=== PATIENT | female | born 1935 | race Caucasian/White ===

== ENCOUNTER 2017-08-19 10:21 | Emergency (ER) | payer OTHER ==
[~2017-08-19] VITALS: Ht 175.3 cm; Wt 59.9 kg
--- NOTE | ~2017-08-19 | EKG ---
[place] [address] [facility] [place] [address] ELECTROCARDIOGRAM REPORT Name: OK WALTER Room #: [facility].#: [id number] Admission: Attend Phys: Discharge: Date of : 34 Report #: [id number] THIS REPORT FOR: //name// [facility] ED Test Date: 2017-08-19 Test Time: 10:30:54 Pat Name: OK WALTER Department: Room: Gender: F Welt Wheeler: [id number] : 1935 Requested By: Isha Garcia Order Number: [id number] MD: Julio Tanner Measurements Intervals [place] Rate: 75 P: 61 LA: 250 QRS: -36 QRSD: 88 T: 67 QT: 409 QTc: 457 Interpretive Statements Sinus rhythm Prolonged LA interval Probable left atrial enlargement Left axis deviation Anteroseptal infarct, age indeterminate Electronically Signed On 08-19-2017 11:12:01 CDT by Julio Tanner [email or web address] <ELECTRONICALLY SIGNED> By: Julio Tanner MD 08/19/17 1112 1030 1030 MD ROCÍO Aguilera
[~2017-08-19 10:21] MED LIST: APAP500; APAP500 PO; ASPIR 8181 MG; ATIVAN0.5 MG PO; BONIVA3 MG/3 ML; CALCIUM 500 +1 EAC5 PO; CENTRUM SILVER1 EAC4 PO; CHLORTHALIDONE25 MG; CHLORTHALIDONE25 MG PO; DOXYCYCLINE 10100 MG PO; HYDROCODON-ACE1 EAC7 PO; IBUPROFEN 200200 M1 PO; IBUPROFEN200 M2 PO; IRON325 PO; LEVOTHYROXIN0.025 MG PO; LUMIGAN2.5 M1 OPHTHALMIC; MULT-VIT-FLUOR0.5 M1; NORCO 5-325 TA1 EACH PO; PROLIA60 MG/1 ML INJECTION; PROLIA60 MG/1 ML SQ; TAPAZOLE5 MG PO; TRAMADOL 50 MG50 MG PO; VALIUM2 MG PO; VITAMIN D2000 UNIT PO; VITAMIN D400 UNI1 PO; ZOFRAN4 MG PO; [UNRECOGNIZED DRUG - REMARK]
[2017-08-19 11:23] LABS: ABSOLUTE NEUTROPHILS 3.5 thou/uL (1.4-8.2); BASOPHILS 1.2 % (0.0-2.0); EOSINOPHILS 1.4 % (0.0-3.0); HEMATOCRIT 36.9 % (37.0-47.0); HEMOGLOBIN 12.5 gm/dL (12.0-15.0); LYMPHOCYTES 30.6 % (24.0-44.0); MCH 30.5 pg (26.0-34.0); MCHC 33.9 g/dL (28.0-37.0); MONOCYTES 8.6 % (1.0-8.0); PLATELET COUNT 205 thou/uL (150-400); POLYS 58.2 % (36.0-66.0); RDW 14.7 % (10.5-14.5); WBC 5.9 thou/uL (4.0-11.0)
[2017-08-19 11:27] LABS: MANUAL DIFF NO
[2017-08-19 11:29] LABS: ANION GAP 8 mmol/L (7-16); BUN 18 mg/dL (7-18); CALCIUM 8.9 mg/dL (8.5-10.1); CHLORIDE 101 mmol/L (98-107); CO2 28 mmol/L (21-32); CREATININE 0.9 mg/dL (0.6-1.0); GLUCOSE 95 mg/dL (74-106); POTASSIUM 4.3 mmol/L (3.5-5.1); SODIUM 137 mmol/L (136-145)
[2017-08-19 11:38] LABS: ALBUMIN 3.6 g/dL (3.4-5.0); ALKALINE PHOSPHATASE 45 U/L (46-116); SGOT 21 U/L (15-37); SGPT 17 U/L (30-65); TOTAL BILIRUBIN 0.4 mg/dL (<0.1-1.0); TROPONIN-I < 0.04 ng/mL (<0.04-0.07)
[2017-08-19] MEDS ORDERED: TYLENOL325 MG PO (12:01)
[2017-08-19] MEDS ORDERED: NORVASC5 MG PO (12:02)
== END 2017-08-19 12:52 | disposition home or self-care (01) ==
LOC: ER 10:21
PROVIDERS: Physician Assistant
DX: R07.9 Chest pain, unspecified (principal); I10 Essential (primary) hypertension; E05.90 Thyrotoxicosis, unspecified without thyrotoxic crisis or storm; Z90.49 Acquired absence of other specified parts of digestive tract; Z88.0 Allergy status to penicillin

== ENCOUNTER 2017-12-16 10:29 | Emergency (ER) | payer OTHER ==
[~2017-12-16] VITALS: Ht 175.3 cm; Wt 59.0 kg
[~2017-12-16 10:29] MED LIST changes: +NORVASC5 MG PO; +TYLENOL325 MG PO
[2017-12-16 10:55] LABS: URINE BILIRUBIN NEGATIVE (Negative); URINE BLOOD 2+ (Negative); URINE CLARITY CLEAR; URINE COLOR YELLOW; URINE GLUCOSE-RANDOM* NEGATIVE (Negative); URINE KETONES NEGATIVE (Negative); URINE LEUKOCYTES 3+ (Negative); URINE NITRITE POSITIVE (Negative); URINE PROTEIN (DIPSTICK) TRACE (Negative); URINE UROBILINOGEN 0.2 E.U./dl (0.2-1.0)
[2017-12-16 11:04] LABS: BACTERIA >30 Many /HPF (None Seen); CASTS None Seen /LPF (None Seen); CRYSTALS None Seen /LPF (None Seen); SQUAMOUS 0-3 Few /LPF (0-3); URINE WBC >25 Many /HPF (0-5); WBC CLUMPS Few (None Seen)
[2017-12-16 11:13] LABS: ABSOLUTE NEUTROPHILS 5.1 thou/uL (1.4-8.2); BASOPHILS 1.1 % (0.0-2.0); EOSINOPHILS 0.7 % (0.0-3.0); HEMATOCRIT 36.5 % (37.0-47.0); HEMOGLOBIN 12.4 gm/dL (12.0-15.0); LYMPHOCYTES 21.8 % (24.0-44.0); MCH 30.4 pg (26.0-34.0); MCHC 33.9 g/dL (28.0-37.0); MCV 89.7 fL (80.0-100.0); PLATELET COUNT 209 thou/uL (150-400); POLYS 68.4 % (36.0-66.0); RBC 4.07 mil/uL (4.20-5.00); RDW 13.8 % (10.5-14.5); WBC 7.4 thou/uL (4.0-11.0)
[2017-12-16 11:21] LABS: CALCIUM 8.9 mg/dL (8.5-10.1); CREATININE 0.9 mg/dL (0.6-1.0)
[2017-12-16 11:27] LABS: ALBUMIN 3.8 g/dL (3.4-5.0); TOTAL BILIRUBIN 0.6 mg/dL (<0.1-1.0); TOTAL PROTEIN 7.1 g/dL (6.4-8.2)
[2017-12-16] MEDS ORDERED: MACROBID 100 M100 M1 PO (12:31)
[2017-12-16 12:38] VITALS: BP 115/65
[2018-08-04] MEDS ORDERED: SYNTHROID88 MCG PO (14:18)
[2018-08-04] MEDS ORDERED: CALCIUM 600 +1 EAC2 PO (14:19)
[2018-08-04] MEDS ORDERED: NORVASC2.5 MG PO (14:19)
[2018-08-04] MEDS ORDERED: VITAMIN D32000 UNI1 PO (14:19)
[2018-08-04] MEDS ORDERED: ELIQUIS5 MG PO (14:20)
[2018-08-04] MEDS ORDERED: TYLENOL EXTRA500 MG PO (14:21)
== END 2017-12-16 12:39 | disposition home or self-care (01) ==
LOC: ER 10:29
PROVIDERS: Physician Assistant
DX: N39.0 Urinary tract infection, site not specified (principal); M79.604 Pain in right leg; I10 Essential (primary) hypertension; E05.90 Thyrotoxicosis, unspecified without thyrotoxic crisis or storm; Z90.49 Acquired absence of other specified parts of digestive tract; Z86.2 Personal history of diseases of the blood and blood-forming organs and certain disorders involving the immune mechanism; Z88.0 Allergy status to penicillin

== ENCOUNTER 2017-12-26 12:19 | Inpatient (IN) | payer OTHER ==
[~2017-12-26] VITALS: Ht 175.3 cm; Wt 61.9 kg
--- NOTE | ~2017-12-26 | H ---
[facility] [place] [address] HISTORY AND PHYSICAL Name: OK WALTER Room #: 203-P ADM IN M.R.#: [id number] Admission: 12/26/17 Attend Phys: Tawana New MD Discharge: Date of : 34 Report #: [id number] THIS REPORT FOR: //name// CC: Tawana New [facility] unknown DATE OF SERVICE: 12/26/2017 REASON FOR PRESENTATION: Nonspecific nausea, headache, chest pain, shoulders pain. HISTORY OF PRESENT ILLNESS: This is an 82-year-old who presented with numerous complaints. She is known to have hypertension, status post thyroidectomy for hyperparathyroidism. She presented after an episode of vomiting last night. This was a one-time event. This morning, she woke up with bilateral shoulders pain. Those were nonspecific and nonreproducible. No injury. No previous similar episodes. Because of her vague symptoms, she decided to come to the Emergency Room. She reported to nonreproducible right-sided chest pain. She visited the Emergency Room about a week ago for nonspecific symptoms and was diagnosed to have urinary tract infection. At that time, she had numerous other complaints. She also has reported right lower extremity pain. A duplex ultrasound was done of her lower extremity back on 12/16/2017 and this was negative for a DVT. CT of the chest and abdomen and pelvis was done today and this was nonrevealing. She continued to have issues in the Emergency Room and was admitted for further evaluation and management. EKG revealed very minor anterolateral changes. PAST MEDICAL HISTORY: 1. Osteoporosis. 2. Post-cataract. 3. Tonsillectomy. 4. Appendectomy. 5. Hypothyroidism and remote history of hyperthyroidism. 6. Fracture, left hip. 7. Fracture, left ankle. MEDICATIONS: 1. Levothyroxine. 2. Prolia. 3. Vitamin D. 4. Amlodipine. ALLERGIES: PENICILLIN. SOCIAL HISTORY: No drug or alcohol abuse. She used to be a ramsey . [address] [address] HISTORY AND PHYSICAL Name: OK WALTER Room #: [address] [place] [address] IN M.R.#: [id number] Admission: 12/26/17 Attend Phys: Tawana New MD Discharge: Date of : 34 Report #: [id number] FAMILY HISTORY: Significant for heart disease. REVIEW OF SYSTEMS: Basically, she had numerous complaints including the following: GENERAL: Significant for weakness. No fever. HEAD AND NECK: Significant for cough. PULMONARY: Significant for shortness of breath. No hemoptysis. CARDIOVASCULAR: As per the history of present illness. GENITOURINARY: No frequency. GASTROINTESTINAL: Occasional nausea and vomiting. MUSCULOSKELETAL: Shoulders pain, knees pain, back pain. SKIN: No rash or ulcerations. PHYSICAL EXAMINATION: GENERAL: She is alert, oriented, in no apparent distress. VITAL SIGNS: Blood pressure 109/61, temperature 36.5, pulse rate 101. HEAD AND NECK: No jugular venous distention, no bruit, no thyromegaly. Scar from previous thyroidectomy. CHEST: No crackles. CARDIOVASCULAR: Regular with no rub. ABDOMEN: Soft, nontender with no hepatosplenomegaly. LOWER EXTREMITIES: No edema. Occasional varicose veins present. LABORATORY VALUES: Reviewed. Basically within normal other than a potassium of 3.4. AST is mildly elevated at 63. Albumin 3.2. UA is still pending. CT abdomen and pelvis reviewed and negative. ASSESSMENT, IMPRESSION AND PLAN: 1. An 82-year-old with numerous complaints including shoulders pain, chest pain, nausea, headache, vomiting, lower extremity swelling. 2. Hypertension. 3. Remote history of thyroidectomy. 4. Nonspecific chest pain. 5. Hypokalemia. 6. Mildly elevated AST. 7. Admission. 8. Serial troponins. 9. Cardiac echo in the morning. 10. Resume thyroid medications. 11. Resume blood pressure medications. 12. If AST is still elevated in the morning, we will address; however, her CT [address] [address] HISTORY AND PHYSICAL Name: OK WALTER Room #: 203-P [facility] IN M.R.#: [id number] Admission: 12/26/17 Attend Phys: Tawana New MD Discharge: Date of : 34 Report #: [id number] abdomen is completely unremarkable. 13. If echo and troponins are negative, she could be discharged home. <ELECTRONICALLY SIGNED> By: Tawana New MD 12/26/17 1810 1546 1615 Tawana New MD /nt
--- NOTE | ~2017-12-26 | 2DMMODE ---
[facility] [address] [place] [address] 2 D/M-MODE ECHOCARDIOGRAM Name: OK WALTER Room #: 203-P ADM IN M.R.#: [id number] Admission: 12/26/17 Attend Phys: Gomez Diaz, Discharge: Date of : 34 Date of Service: 12/27/17 1119 Report #: [id number] THIS REPORT FOR: //name// APPROVED REPORT Study performed: 12/27/2017 09:40:17 EXAM: Comprehensive 2D, Doppler, and color-flow Echocardiogram Patient Location: Bedside Room #: 203 Status: routine BSA: 1.75 HR: 67 bpm BP: 133/58 mmHg Other Information Study Quality: Poor Indications Chest Pain Hypertension/HDD Aortic Valve AoV Peak Veto.: 1.03 m/s AO Peak Gr.: 4.27 mmHg Mitral Valve E/A Ratio: 1.4 MV Decel. Time: 342.75 ms MV E Max Veto.: 0.88 m/s MV A Veto.: 0.64 m/s MV PHT: 99.40 ms IVRT: 73.82 ms Pulmonary Valve PV Peak Veto.: 0.87 m/s PV Peak Gr.: 3.03 mmHg Left Ventricle The left ventricle is normal size. Regional wall motion is not well visualized but grossly normal. There is normal left ventricular wall thickness. The left ventricular systolic function is normal. The left ventricular ejection fraction is within the normal range. LVEF is 55-60%. This study is not technically sufficient to allow evaluation of the LV diastolic function due to atrial fibrillation. [facility] [address] [place] [address] 2 D/M-MODE ECHOCARDIOGRAM Name: OK WALTER Room #: 203-P ADM IN M.R.#: [id number] Admission: 12/26/17 Attend Phys: Gomez Diaz, Discharge: Date of : 34 Date of Service: 12/27/17 1119 Report #: [id number] Right Ventricle The right ventricle is normal size. The right ventricular systolic function is normal. Atria The left atrium size is normal. The right atrium size is normal. Aortic Valve The aortic valve is normal in structure. No aortic regurgitation is present. There is no aortic valvular stenosis. Mitral Valve The mitral valve is normal in structure. Trace mitral regurgitation. No evidence of mitral valve stenosis. Tricuspid Valve The tricuspid valve is normal in structure. There is no tricuspid valve regurgitation noted. Pulmonic Valve The pulmonary valve is normal in structure. There is no pulmonic valvular regurgitation. Great Vessels The aortic root is normal in size. IVC is not well visualized. Pericardium There is no pericardial effusion. <Conclusion> Very limited study The left ventricular systolic function is normal. Regional wall motion is not well visualized but grossly normal. LVEF 55-60%. Significant structural valve disease probably absent. No significant regurgitant or stenotic lesions Pulmonary artery pressure could not be reliably ascertained No pericardial effusion <ELECTRONICALLY SIGNED> By: Ari Constantino MD, FACC 12/27/17 1119 1119 1119 Ari Constantino MD, FACC /INF
--- NOTE | ~2017-12-26 | EKG ---
[address] [place] [address] ELECTROCARDIOGRAM REPORT Name: OK WALTER Room #: 203-P ADM IN M.R.#: [id number] Admission: 12/26/17 Attend Phys: Gomez Diaz MD Discharge: Date of : 34 Report #: [id number] THIS REPORT FOR: //name// [facility] ED Test Date: 2017-12-26 Test Time: 13:31:31 Pat Name: OK WALTER Department: Room: [facility] Gender: F Drop Clipper: Saundra BURROUGHS : 1935 Requested By: Hung Bustillo Order Number: [id number] MD: Ari Constantino Measurements Intervals [place] Rate: 70 P: 118 IA: 239 QRS: -40 QRSD: 91 T: 83 QT: 403 QTc: 435 Interpretive Statements Sinus rhythm Prolonged IA interval Left axis deviation Anterior infarct, old Nonspecific ST segment abnormality Compared to ECG 08/19/2017 10:30:54 ST segment abnormality is now present, lateral leads Electronically Signed On 12-27-2017 7:38:48 BENCH MANAGER by Ari Constantino [email or web address] <ELECTRONICALLY SIGNED> By: Ari Constantino MD, [facility] 12/27/17 0738 1331 1331 Ari Constantino MD, [facility] /EPI
[~2017-12-26 12:19] MED LIST changes: +MACROBID 100 M100 M1 PO
[2017-12-26 12:38] VITALS: BP 109/61
[2017-12-26 13:54] LABS: HEMATOCRIT 36.1 % (37.0-47.0); HEMOGLOBIN 12.6 gm/dL (12.0-15.0); MCH 30.7 pg (26.0-34.0); MCHC 34.8 g/dL (28.0-37.0); MCV 88.1 fL (80.0-100.0); PLATELET COUNT 162 thou/uL (150-400); RDW 13.6 % (10.5-14.5); WBC 5.3 thou/uL (4.0-11.0)
[2017-12-26 14:00] LABS: ANION GAP 11 mmol/L (7-16); BUN 14 mg/dL (7-18); CALCIUM 8.3 mg/dL (8.5-10.1); CHLORIDE 100 mmol/L (98-107); CO2 24 mmol/L (21-32); CREATININE 0.9 mg/dL (0.6-1.0); GLUCOSE 132 mg/dL (74-106); POTASSIUM 3.4 mmol/L (3.5-5.1); SODIUM 135 mmol/L (136-145)
[2017-12-26 14:09] LABS: ALBUMIN 3.2 g/dL (3.4-5.0); DIRECT BILIRUBIN 0.1 mg/dL (<0.1-0.3); LIPASE 224 U/L (73-393); SGOT 63 U/L (15-37); SGPT 53 U/L (30-65); TOTAL BILIRUBIN 0.4 mg/dL (<0.1-1.0); TOTAL PROTEIN 6.4 g/dL (6.4-8.2); TROPONIN-I < 0.04 ng/mL (<0.06)
[2017-12-26 14:29] LABS: ABSOLUTE NEUTROPHILS 4.3 thou/uL (1.4-8.2)
[2017-12-26 15:50] VITALS: BP 127/50
[2017-12-26 15:52] LABS: URINE BILIRUBIN NEGATIVE (Negative); URINE BLOOD TRACE (Negative); URINE CLARITY CLEAR; URINE COLOR YELLOW; URINE GLUCOSE-RANDOM* NEGATIVE (Negative); URINE KETONES 1+ (Negative); URINE LEUKOCYTES NEGATIVE (Negative); URINE NITRITE NEGATIVE (Negative); URINE PROTEIN (DIPSTICK) NEGATIVE (Negative); URINE SPECIFIC GRAVITY 1.015 (1.005-1.035); URINE UROBILINOGEN 0.2 E.U./dl (0.2-1.0)
[2017-12-26 16:18] VITALS: BP 121/74
[2017-12-26 19:33] VITALS: BP 141/73
[2017-12-26 23:18] VITALS: BP 121/64
[2017-12-27 01:37] LABS: HEMATOCRIT 30.9 % (37.0-47.0); MCH 30.4 pg (26.0-34.0); MCHC 33.6 g/dL (28.0-37.0); MCV 90.4 fL (80.0-100.0); RBC 3.42 mil/uL (4.20-5.00); RDW 14.1 % (10.5-14.5); WBC 2.9 thou/uL (4.0-11.0)
[2017-12-27 01:39] LABS: HEMOGLOBIN 10.4 gm/dL (12.0-15.0)
[2017-12-27 01:56] LABS: ALBUMIN 2.2 g/dL (3.4-5.0); CALCIUM 6.7 mg/dL (8.5-10.1); CREATININE 0.7 mg/dL (0.6-1.0); PHOSPHORUS 3.4 mg/dL (2.5-4.9); TOTAL BILIRUBIN 0.2 mg/dL (<0.1-1.0); TOTAL PROTEIN 4.6 g/dL (6.4-8.2)
[2017-12-27 01:59] LABS: POTASSIUM 2.8 mmol/L (3.5-5.1)
[2017-12-27 03:45] VITALS: BP 132/50
[2017-12-27 07:35] VITALS: BP 133/58
[2017-12-27 11:19] VITALS: BP 133/67
[2017-12-27 12:23] VITALS: BP 133/67
[2017-12-27 12:30] VITALS: BP 133/67
[2018-08-04] MEDS ORDERED: SYNTHROID88 MCG PO (14:18)
[2018-08-04] MEDS ORDERED: CALCIUM 600 +1 EAC2 PO (14:19)
[2018-08-04] MEDS ORDERED: VITAMIN D32000 UNI1 PO (14:19)
[2018-08-04] MEDS ORDERED: NORVASC2.5 MG PO (14:19)
[2018-08-04] MEDS ORDERED: ELIQUIS5 MG PO (14:20)
[2018-08-04] MEDS ORDERED: TYLENOL EXTRA500 MG PO (14:21)
== END 2017-12-27 14:50 | disposition home or self-care (01) | DRG 313 ==
LOC: ER 12:19 → 2N 15:19 → EROBS 15:19 → 2N 17:34 → ENTRNSPT 12-27 14:42 → EDTRNSPTSTS 12-27 14:45 → 2N 12-27 14:50
PROVIDERS: Hospitalist; Nurse Practitioner
PROC: B24BZZ4 Ultrasonography of Heart with Aorta, Transesophageal (ICD-10-PCS; principal; 2017-12-27)
DX: R07.89 Other chest pain (principal); I10 Essential (primary) hypertension; H40.9 Unspecified glaucoma; E87.6 Hypokalemia; E89.0 Postprocedural hypothyroidism; E21.3 Hyperparathyroidism, unspecified; M81.0 Age-related osteoporosis without current pathological fracture; Z87.81 Personal history of (healed) traumatic fracture; Z98.42 Cataract extraction status, left eye; Z98.41 Cataract extraction status, right eye; Z90.49 Acquired absence of other specified parts of digestive tract; Z79.899 Other long term (current) drug therapy; Z88.0 Allergy status to penicillin; Z82.49 Family history of ischemic heart disease and other diseases of the circulatory system
CPT/HCPCS: 10081

== ENCOUNTER → 2018-01-25 | Outpatient (CLI) | payer OTHER ==
[~2018-01-25] MED LIST changes: +CALCIUM 600 +1 EAC2 PO; +ELIQUIS5 MG PO; +HYDROCODONE-AP1 EAC6 PO; +KLOR-CON 1010 MEQ PO; +LASIX 20 MG TAB20 MG PO; +NORVASC2.5 MG PO; +SYNTHROID88 MCG PO; +TYLENOL EXTRA500 MG PO; +VITAMIN C500 M2 PO; +VITAMIN D32000 UNI1 PO
== END ==
LOC: RAD 07:40
DX: C50.411 Malignant neoplasm of upper-outer quadrant of right female breast (principal); Z17.0 Estrogen receptor positive status [ER+]; Z90.12 Acquired absence of left breast and nipple

== ENCOUNTER 2018-03-18 15:33 | Inpatient (IN) | payer OTHER ==
[~2018-03-18] VITALS: Ht 175.3 cm; Wt 65.1 kg
--- NOTE | ~2018-03-18 | 2DMMODE ---
[facility] [address] [facility] [place] [address] 2 D/M-MODE ECHOCARDIOGRAM Name: OK WALTER Room #: 206-P ADM IN M.R.#: [id number] Admission: 03/18/18 Attend Phys: Gomez Diaz, Discharge: Date of : 34 Date of Service: 03/20/18 0727 Report #: [id number] THIS REPORT FOR: //name// APPROVED REPORT Study performed: 03/19/2018 12:59:08 EXAM: Comprehensive 2D, Doppler, and color-flow Echocardiogram Patient Location: Bedside Room #: 206 Status: on-call BSA: 1.78 HR: 55 bpm BP: 94/50 mmHg Rhythm: Atrial Fibrillation Other Information Study Quality: Adequate Risk Factors: Cardiac Risk Factors: HTN Indications Atrial Fibrillation Dyspnea 2D Dimensions LVEF(%): 67.22 (>50%) IVSd: 6.78 (7-11mm) LVOT Diam: 20.00 (18-24mm) LVDd: 33.06 mm PWd: 8.92 (7-11mm) Ascending Ao: 27.66 (22-36mm) LVDs: 21.07 (25-40mm) Aortic Root: 26.04 mm LV Single Plane 4CH: 62.95 % LV Single Plane 2CH: 67.17 % Chance's LVEF: 65.06 % Biplane EF: 63.9 % Volumes Left Atrial Volume (Systole) Single Plane 4CH: 26.71 mL Single Plane 2CH: 33.34 mL LA ESV Index: 18.00 mL/m2 Aortic Valve AoV Peak Veto.: 1.03 m/s AO Peak Gr.: 4.63 mmHg LVOT Max P.83 mmHg [facility] [place] [address] 2 D/M-MODE ECHOCARDIOGRAM Name: OK WALTER ROLAND Room #: [address] [place] [address] IN .R.#: [id number] Admission: 03/18/18 Attend Phys: Gomez Diaz, Discharge: Date of : 34 Date of Service: 03/20/18 0727 Report #: [id number] LVOT Max V: 0.84 m/s JESSICA Vmax: 2.45 cm2 Pulmonary Valve PV Peak Veto.: 0.74 m/s PV Peak Gr.: 2.22 mmHg Tricuspid Valve TR Peak Veto.: 2.39 m/s RAP Estimate: 7.00 mmHg TR Peak Gr.: 22.77 mmHg PA Pressure: 30.00 mmHg Left Ventricle The left ventricle is normal size. There is normal LV segmental wall motion. There is normal left ventricular wall thickness. Left ventricular systolic function is normal. The left ventricular ejection fraction is within the normal range. LVEF is 60-65%. This study is not technically sufficient to allow evaluation of the LV diastolic function due to atrial fibrillation. Right Ventricle The right ventricle is normal size. The right ventricular systolic function is normal. Atria The left atrium size is normal. The right atrium size is normal. Aortic Valve The Aortic valve is sclerotic. No aortic regurgitation is present. There is no aortic valvular stenosis. Mitral Valve There is mitral annular calcification. Trace mitral regurgitation. No evidence of mitral valve stenosis. Tricuspid Valve The tricuspid valve is normal in structure. Trace tricuspid regurgitation. Pulmonary artery pressure is 30 mmHg. Pulmonic Valve The pulmonary valve is normal in structure. Trace pulmonic regurgitation. Great Vessels The aortic root is normal in size. IVC is normal in size and collapses with >50% inspiration [facility] [address] [place] [address] 2 D/M-MODE ECHOCARDIOGRAM Name: OK WALTER GLENNA Room #: 206-P [facility] IN M.R.#: [id number] Admission: 03/18/18 Attend Phys: Gomez Diaz, Discharge: Date of : 34 Date of Service: 03/20/18 0727 Report #: [id number] Pericardium There is no pericardial effusion. <Conclusion> The left ventricle is normal size. Left ventricular systolic function is normal. The right ventricle is normal size. The left atrium size is normal. The right atrium size is normal. The Aortic valve is sclerotic. Trace mitral regurgitation. Trace tricuspid regurgitation. Pulmonary artery pressure is 30 mmHg. There is no pericardial effusion. <ELECTRONICALLY SIGNED> By: Jimenez Mg MD 03/20/18726 6 6 Jimenez Mg MD /INF
--- NOTE | ~2018-03-18 | EKG ---
[address] [address] ELECTROCARDIOGRAM REPORT Name: OK WALTER Room #: 206-P ADM IN M.R.#: [id number] Admission: 03/18/18 Attend Phys: Gomez Diaz MD Discharge: Date of : 34 Report #: [id number] THIS REPORT FOR: //name// [facility] ED Test Date: 2018-03-18 Test Time: 17:03:45 Pat Name: OK WALTER Department: Room: Gender: F High [employer] Professional: MILADY : 1935 Requested By: Dmitri Gamble Order Number: [id number] MD: Jimenez Mg Measurements Intervals [place] Rate: 71 P: AK: QRS: -34 QRSD: 96 T: 58 QT: 451 QTc: 491 Interpretive Statements Atrial fibrillation Left axis deviation Anterior infarct, old Compared to ECG 12/26/2017 13:31:31 Sinus rhythm no longer present First degree AV block no longer present Myocardial infarct finding still present ST (T wave) deviation still present Electronically Signed On 03-18-2018 22:29:45 CDT by Jimenez Mg [email or web address] <ELECTRONICALLY SIGNED> By: Jimenez Mg MD 03/18/18 2229 1703 1703 Jimenez Mg MD /EPI
--- NOTE | ~2018-03-18 | HC ---
[facility] [place] [address] CONSULTATION Name: OK WALTER Room #: 206-P ADM IN M.R.#: [id number] Admission: 03/18/18 Attend Phys: Gomez Diaz MD Discharge: Date of : 34 Report #: [id number] THIS REPORT FOR: //name// CC: Yessi Diaz DATE OF SERVICE: 03/19/2018 INDICATION: Atrial fibrillation. HISTORY OF PRESENT ILLNESS: This is an 82-year-old female with a history of hypothyroidism, hypertension, arthritis, who presents with increased swelling of her legs. The patient reports having chronic dyspnea on exertion, partly related to deconditioning. There is no history of chest pains, lightheadedness, palpitations or congestion. She came into the ER due to increased swelling of her legs. She was found to be in atrial fibrillation with a controlled ventricular rate. Interestingly, she is not on any AV maycol blocking agents. She received IV Lasix with an improvement in her lower extremity edema. PAST MEDICAL HISTORY: Hypertension, hypothyroidism, arthritis. ALLERGIES: PENICILLIN. MEDICATIONS: At home include levothyroxine, amlodipine 5 mg, vitamin. SOCIAL HISTORY: Negative for tobacco use. FAMILY HISTORY: Negative for premature CAD. REVIEW OF SYSTEMS: A full 10-point review of systems performed. Only the pertinent positives and negatives as described in the HPI. PHYSICAL EXAMINATION: VITAL SIGNS: Blood pressure is 120/70, heart rate is 50 beats per minute. GENERAL APPEARANCE: An elderly appearing female in no acute respiratory distress. HEAD AND EYES: Normocephalic. Sclerae are anicteric. ENT: Oral mucosa moist. NECK: Supple. LUNGS: Clear to auscultation. CARDIAC: Irregularly irregular, S1, S2 positive. ABDOMEN: Soft, nontender. EXTREMITIES: No cyanosis, trace lower extremity edema. ECG reveals atrial fibrillation with a controlled ventricular rate, Q-waves in leads V2-V3, nonspecific ST segment abnormality. [facility] [address] [place] [address] CONSULTATION Name: OK WALTER Room #: [address] [place] [address] IN .R.#: [id number] Admission: 03/18/18 Attend Phys: Gomez Diaz MD Discharge: Date of : 34 Report #: [id number] LABORATORY VALUES: Sodium is 139, creatinine is 0.8. TSH is within normal limits. Hemoglobin is 12.7. ASSESSMENT AND PLAN: 1. Atrial fibrillation with a controlled ventricular rate, not requiring any AV node blocking agents. Due to the elevated CHADS score, I discussed with the patient the pros and cons of long-term anticoagulation. She understands and agrees. She appears to be relatively stable with atrial fibrillation. We will continue with a strategy of rate control, even though she is not requiring any medications. Suspect that she may have underlying bradycardia. We will need a repeat echo given the ECG changes. 2. Hypertension, continue with medications. 3. Abnormal ECG, evidence for anteroseptal myocardial infarction. We will need to validate with an ischemic evaluation. 4. Generalized arthritis. <ELECTRONICALLY SIGNED> By: Jimenez Mg MD 03/19/18 2144 1149 1452 Jimenez Mg MD /nt
[~2018-03-18 15:33] MED LIST changes: -CALCIUM 600 +1 EAC2 PO; -ELIQUIS5 MG PO; -HYDROCODONE-AP1 EAC6 PO; -KLOR-CON 1010 MEQ PO; -LASIX 20 MG TAB20 MG PO; -NORVASC2.5 MG PO; -SYNTHROID88 MCG PO; -TYLENOL EXTRA500 MG PO; -VITAMIN C500 M2 PO; -VITAMIN D32000 UNI1 PO
[2018-03-18 16:50] VITALS: BP 129/68
[2018-03-18] MEDS ORDERED: VITAMIN C500 M2 PO (17:08)
[2018-03-18 17:11] LABS: ABSOLUTE NEUTROPHILS 3.3 thou/uL (1.4-8.2); BASOPHILS 1.2 % (0.0-2.0); EOSINOPHILS 7.7 % (0.0-3.0); HEMATOCRIT 37.6 % (37.0-47.0); HEMOGLOBIN 12.7 gm/dL (12.0-15.0); LYMPHOCYTES 30.1 % (24.0-44.0); MCH 30.1 pg (26.0-34.0); MCHC 33.8 g/dL (28.0-37.0); MCV 89.1 fL (80.0-100.0); MONOCYTES 10.3 % (1.0-8.0); PLATELET COUNT 229 thou/uL (150-400); POLYS 50.7 % (36.0-66.0); RBC 4.22 mil/uL (4.20-5.00); RDW 14.9 % (10.5-14.5); WBC 6.6 thou/uL (4.0-11.0)
[2018-03-18 17:22] LABS: ANION GAP 6 mmol/L (7-16); BUN 14 mg/dL (7-18); CALCIUM 9.3 mg/dL (8.5-10.1); CHLORIDE 100 mmol/L (98-107); CO2 29 mmol/L (21-32); CREATININE 0.9 mg/dL (0.6-1.0); GLUCOSE 103 mg/dL (74-106); POTASSIUM 3.9 mmol/L (3.5-5.1); SODIUM 135 mmol/L (136-145)
[2018-03-18 17:29] LABS: SGOT 22 U/L (15-37); SGPT 27 U/L (30-65); TOTAL BILIRUBIN 0.5 mg/dL (<0.1-1.0); TOTAL PROTEIN 7.8 g/dL (6.4-8.2); TROPONIN-I < 0.04 ng/mL (<0.06)
[2018-03-18 18:29] VITALS: BP 129/68
[2018-03-18 20:32] VITALS: BP 148/77
[2018-03-18 21:00] VITALS: BP 122/63
[2018-03-19 00:24] VITALS: BP 110/53
[2018-03-19 03:39] LABS: CALCIUM 9.4 mg/dL (8.5-10.1); CREATININE 0.8 mg/dL (0.6-1.0); POTASSIUM 3.5 mmol/L (3.5-5.1)
[2018-03-19 05:10] VITALS: BP 111/51
[2018-03-19 07:20] VITALS: BP 116/61
[2018-03-19 11:25] VITALS: BP 94/50
[2018-03-19 15:45] VITALS: BP 105/57
[2018-03-19 19:23] VITALS: BP 124/75
[2018-03-20 04:46] VITALS: BP 120/51
[2018-03-20 07:22] VITALS: BP 101/53
[2018-03-20 12:17] VITALS: BP 103/38
[2018-03-20 16:48] VITALS: BP 108/55
[2018-03-20 20:14] VITALS: BP 134/56
[2018-03-21 04:15] VITALS: BP 119/62
[2018-03-21 07:54] VITALS: BP 132/60
[2018-03-21 12:17] VITALS: BP 134/69
[2018-03-21] MEDS ORDERED: ELIQUIS5 MG PO (13:52)
[2018-03-21] MEDS ORDERED: NORVASC5 MG PO (14:00)
[2018-03-21 14:24] VITALS: BP 134/69
== END 2018-03-21 15:00 | disposition home or self-care (01) | DRG 308 ==
LOC: ER 15:33 → EROBS 17:55 → 2N 17:55 → ENTRNSPT 03-21 14:30 → EDTRNSPTSTS 03-21 14:32 → 2N 03-21 15:00
PROVIDERS: Emergency Medicine; Nurse Practitioner Family
DX: I48.91 Unspecified atrial fibrillation (principal); I50.33 Acute on chronic diastolic (congestive) heart failure; I50.9 Heart failure, unspecified; I11.0 Hypertensive heart disease with heart failure; M81.0 Age-related osteoporosis without current pathological fracture; E03.9 Hypothyroidism, unspecified; M19.90 Unspecified osteoarthritis, unspecified site; E05.90 Thyrotoxicosis, unspecified without thyrotoxic crisis or storm; H40.10X0 Unspecified open-angle glaucoma, stage unspecified; I25.2 Old myocardial infarction; Z87.81 Personal history of (healed) traumatic fracture; Z98.42 Cataract extraction status, left eye; Z98.41 Cataract extraction status, right eye; Z90.49 Acquired absence of other specified parts of digestive tract; Z79.899 Other long term (current) drug therapy; Z88.0 Allergy status to penicillin
CPT/HCPCS: 10081

== ENCOUNTER 2018-06-07 08:07 | Emergency (ER) | payer OTHER ==
[~2018-06-07] VITALS: Ht 175.3 cm; Wt 60.3 kg
--- NOTE | ~2018-06-07 | EKG ---
[address] [place] [address] ELECTROCARDIOGRAM REPORT Name: OK WALTER Room #: [facility]#: [id number] Admission: 06/07/18 Attend Phys: Discharge: 06/07/18 Date of : 34 Report #: [id number] THIS REPORT FOR: //name// [facility] ED Test Date: 2018-06-07 Test Time: 09:00:07 Pat Name: OK WALTER Department: Room: Gender: F Saddle Stitcher: [facility] : 1935 Requested By: Kelli Nelson Order Number: [id number] MD: Ari Constantino Measurements Intervals [place] Rate: 73 P: GA: QRS: -47 QRSD: 95 T: 72 QT: 439 QTc: 484 Interpretive Statements Atrial fibrillation Left anterior fascicular block Anteroseptal infarct, age indeterminate Compared to ECG 03/18/2018 17:03:45 No significant change was found Electronically Signed On 06-08-2018 7:39:54 CDT by Ari Constantino [email or web address] <ELECTRONICALLY SIGNED> By: Ari Constantino MD, [facility] 06/08/1839 9 9 Ari Constantino MD, [facility] /EPI
[~2018-06-07 08:07] MED LIST changes: +ELIQUIS5 MG PO; +VITAMIN C500 M2 PO
[2018-06-07 08:58] LABS: URINE BILIRUBIN NEGATIVE (Negative); URINE BLOOD 1+ (Negative); URINE CLARITY CLEAR; URINE COLOR YELLOW; URINE GLUCOSE-RANDOM* NEGATIVE (Negative); URINE KETONES NEGATIVE (Negative); URINE LEUKOCYTES NEGATIVE (Negative); URINE NITRITE NEGATIVE (Negative); URINE PROTEIN (DIPSTICK) NEGATIVE (Negative); URINE UROBILINOGEN 0.2 E.U./dl (0.2-1.0)
[2018-06-07 09:10] LABS: CASTS None Seen /LPF (None Seen); CRYSTALS None Seen /LPF (None Seen); SQUAMOUS 0-3 Few /LPF (0-3); URINE RBC 0-2 Rare /HPF (0-2); URINE WBC 0-5 Rare /HPF (0-5)
[2018-06-07 09:11] LABS: BACTERIA None Seen /HPF (None Seen)
[2018-06-07 09:24] LABS: ABSOLUTE NEUTROPHILS 3.2 thou/uL (1.4-8.2); BASOPHILS 1.1 % (0.0-2.0); EOSINOPHILS 1.2 % (0.0-3.0); HEMATOCRIT 36.5 % (37.0-47.0); HEMOGLOBIN 12.2 gm/dL (12.0-15.0); LYMPHOCYTES 24.2 % (24.0-44.0); MCH 29.4 pg (26.0-34.0); MCHC 33.4 g/dL (28.0-37.0); MCV 88.1 fL (80.0-100.0); MONOCYTES 8.9 % (1.0-8.0); PLATELET COUNT 185 thou/uL (150-400); POLYS 64.6 % (36.0-66.0); RBC 4.14 mil/uL (4.20-5.00); RDW 15.4 % (10.5-14.5); WBC 4.9 thou/uL (4.0-11.0)
[2018-06-07 09:32] LABS: ANION GAP 8 mmol/L (7-16); BUN 16 mg/dL (7-18); CALCIUM 8.8 mg/dL (8.5-10.1); CHLORIDE 107 mmol/L (98-107); CO2 25 mmol/L (21-32); CREATININE 0.9 mg/dL (0.6-1.0); GLUCOSE 94 mg/dL (74-106); POTASSIUM 4.3 mmol/L (3.5-5.1); SODIUM 140 mmol/L (136-145)
[2018-06-07 09:40] LABS: ALBUMIN 3.6 g/dL (3.4-5.0); DIRECT BILIRUBIN 0.2 mg/dL (<0.1-0.3); LIPASE 121 U/L (73-393); SGOT 26 U/L (15-37); SGPT 29 U/L (30-65); TOTAL BILIRUBIN 0.7 mg/dL (<0.1-1.0); TROPONIN-I <0.06 ng/mL (<0.06)
== END 2018-06-07 11:13 | disposition home or self-care (01) ==
LOC: ER 08:07
PROVIDERS: Student in an Organized Health Care Education/Training Program
DX: K80.20 Calculus of gallbladder without cholecystitis without obstruction (principal); I48.91 Unspecified atrial fibrillation; I11.0 Hypertensive heart disease with heart failure; I50.9 Heart failure, unspecified; M81.0 Age-related osteoporosis without current pathological fracture; Z90.89 Acquired absence of other organs; Z88.0 Allergy status to penicillin; E05.90 Thyrotoxicosis, unspecified without thyrotoxic crisis or storm

== ENCOUNTER 2018-06-27 10:51 | Emergency (ER) | payer OTHER ==
[~2018-06-27] VITALS: Ht 175.3 cm; Wt 59.9 kg
--- NOTE | ~2018-06-27 | EKG ---
[place] [address] [facility] [place] [address] ELECTROCARDIOGRAM REPORT Name: OK WALTER [id number] Admission: 06/27/18 Attend Phys: Discharge: 06/27/18 Date of : 34 Report #: [id number] THIS REPORT FOR: //name// [facility] ED Test Date: 2018-06-27 Test Time: 11:29:57 Pat Name: OK WALTER Department: Room: Gender: F Studio Manager: [facility] : 1935 Requested By: Dmitri Gamble Order Number: [id number] MD: Ari Constantino Measurements Intervals [place] Rate: 49 P: SC: QRS: -42 QRSD: 105 T: 65 QT: 464 QTc: 419 Interpretive Statements Atrial fibrillation Left axis deviation Anteroseptal infarct, age indeterminate Compared to ECG 06/07/2018 09:00:07 No significant change was found Electronically Signed On 06-28-2018 8:04:37 CDT by Ari Constantino [email or web address] <ELECTRONICALLY SIGNED> By: Ari Constantino MD, [facility] 06/28/18 0804 1129 1129 Ari Constantino MD, [facility] /EPI
[2018-06-27 11:32] LABS: ABSOLUTE NEUTROPHILS 3.2 thou/uL (1.4-8.2); BASOPHILS 1.1 % (0.0-2.0); EOSINOPHILS 2.9 % (0.0-3.0); HEMATOCRIT 38.2 % (37.0-47.0); HEMOGLOBIN 12.8 gm/dL (12.0-15.0); LYMPHOCYTES 28.2 % (24.0-44.0); MCH 29.4 pg (26.0-34.0); MCHC 33.5 g/dL (28.0-37.0); MCV 87.8 fL (80.0-100.0); MONOCYTES 8.7 % (1.0-8.0); PLATELET COUNT 206 thou/uL (150-400); POLYS 59.1 % (36.0-66.0); RBC 4.35 mil/uL (4.20-5.00); RDW 16.1 % (10.5-14.5); WBC 5.4 thou/uL (4.0-11.0)
[2018-06-27 11:44] LABS: ANION GAP 8 mmol/L (7-16); BUN 14 mg/dL (7-18); CALCIUM 8.9 mg/dL (8.5-10.1); CHLORIDE 103 mmol/L (98-107); CO2 27 mmol/L (21-32); CREATININE 0.9 mg/dL (0.6-1.0); GLUCOSE 77 mg/dL (74-106); POTASSIUM 4.1 mmol/L (3.5-5.1); SODIUM 138 mmol/L (136-145)
[2018-06-27 11:53] LABS: ALBUMIN 3.8 g/dL (3.4-5.0); SGOT 25 U/L (15-37); SGPT 26 U/L (30-65); TOTAL BILIRUBIN 0.4 mg/dL (<0.1-1.0); TOTAL PROTEIN 7.8 g/dL (6.4-8.2); TROPONIN-I <0.06 ng/mL (<0.06)
[2018-06-27] MEDS ORDERED: LASIX 20 MG TAB20 MG PO (13:12)
[2018-06-27] MEDS ORDERED: KLOR-CON 1010 MEQ PO (13:12)
== END 2018-06-27 13:45 | disposition home or self-care (01) ==
LOC: ER 10:51
PROVIDERS: Emergency Medicine
DX: R60.0 Localized edema (principal); R05 Cough; R06.02 Shortness of breath; M81.0 Age-related osteoporosis without current pathological fracture; I48.91 Unspecified atrial fibrillation; E05.90 Thyrotoxicosis, unspecified without thyrotoxic crisis or storm; I10 Essential (primary) hypertension; Z88.0 Allergy status to penicillin; Z90.89 Acquired absence of other organs; Z90.49 Acquired absence of other specified parts of digestive tract; Z86.2 Personal history of diseases of the blood and blood-forming organs and certain disorders involving the immune mechanism

== ENCOUNTER 2018-08-10 05:30 | Inpatient (IN) | payer OTHER ==
[~2018-08-10] VITALS: Ht 175.3 cm; Wt 59.4 kg
[2018-08-10] VITALS (9 sets, daily range): BP systolic 131–161; BP diastolic 44–77
--- NOTE | ~2018-08-10 | H ---
[facility] [place] [address] HISTORY AND PHYSICAL Name: OK WALTER Room #: 150-4 [facility]#: [id number] Admission: 08/10/18 Attend Phys: Michael Albrecht MD Discharge: Date of : 34 Report #: [id number] THIS REPORT FOR: //name// CC: Yessi Albrecht DATE OF SERVICE: 08/10/[address] Yessi Guadarrama. DATE OF ADMISSION AND SURGERY: 08/10/2018. CHIEF COMPLAINT: Abdominal pain. HISTORY OF PRESENT ILLNESS: The patient is an 83-year-old white female who about 6 weeks ago began experiencing abdominal pain. She stated the pain is intermittent and occasionally food helps the pain. She denies any fever, chills, nausea, vomiting, diarrhea or constipation. She had severe episode and went to the Emergency Department of [facility] where on CT scan she was found to have cholelithiasis with a contracted gallbladder. There was no pericholecystic fluid. No gallbladder wall thickening or ductal dilatation seen on the CAT scan. She was then sent for surgical consultation. PAST MEDICAL HISTORY: Osteoporosis, hypothyroidism, right breast cancer, hypertension, vasculitis. PAST SURGICAL HISTORY: Appendectomy, tonsillectomy, hip surgery, wrist surgery, thyroidectomy, cyst removed from the ovary, right breast biopsy in 2016, right breast partial mastectomy in 2016 with reexcision of the margins in 2017, right leg biopsy in 2018. MEDICATIONS: Prolia, levothyroxine 88 mcg p.o. every day, calcium with vitamin D, Tylenol p.r.n., amlodipine 5 mg p.o. every day, vitamin C, Eliquis 5 mg p.o. every day. ALLERGIES: PENICILLIN. FAMILY HISTORY: Noncontributory. SOCIAL HISTORY: The patient does not smoke or drink alcohol. She is retired. No children. REVIEW OF SYSTEMS: Pertinent positives as above. Full review of systems otherwise negative. [facility] [address] [place] [address] HISTORY AND PHYSICAL Name: OK WALTER Room #: [address] [place] [address]#: [id number] Admission: 08/10/18 Attend Phys: Michael Albrecht MD Discharge: Date of : 34 Report #: [id number] PHYSICAL EXAMINATION: GENERAL: She is well-developed, well-nourished female in no acute distress. VITAL SIGNS: Stable. She is afebrile. HEENT: Unremarkable. LUNGS: Clear to auscultation bilaterally. No excursion. CARDIOVASCULAR: Regular rate and rhythm. No murmurs, S3, S4. No PMI. ABDOMEN: Soft, flat, nontender, no palpable mass, no organomegaly, no hernias. EXTREMITIES: No clubbing, cyanosis or edema. NEUROLOGIC: Intact with a clear mental status. No focal motor or sensory deficits. IMPRESSION: An 83-year-old female with gallstones, probable biliary colic, possible cholecystitis. I fully discussed with the patient the gallbladder surgery may relieve all, some and none of her symptoms. She states she understands and wishes to proceed with surgery. PLAN: We will perform laparoscopic cholecystectomy under general endotracheal anesthesia, 23-hour observation, admission to [facility]. The procedure and its risks, benefits and possible complications were fully discussed with the patient including possible open cholecystectomy. She states she understands and agrees to proposed surgery. The patient has been instructed to discontinue her Eliquis at least 3 days prior to surgery. <ELECTRONICALLY SIGNED> By: Michael Albrecht MD 08/10/18 1008 220 Michael Albrecht MD /nt
--- NOTE | ~2018-08-10 | O ---
[facility] [place] [address] OPERATIVE REPORT Name: OK WALTER Room #: 461-P [facility]#: [id number] Admission: 08/10/18 Attend Phys: Michael Albrecht MD Discharge: Date of : 34 Report #: [id number] THIS REPORT FOR: //name// CC: Yesis Albrecht DATE OF SERVICE: 08/10/[address] Michael Albrecht and Dr. Yessi Guadarrama. PREOPERATIVE DIAGNOSES: Cholelithiasis, cholecystitis, biliary colic. POSTOPERATIVE DIAGNOSES: Cholelithiasis, cholecystitis, biliary colic. PROCEDURE: Laparoscopic cholecystectomy. SURGEON: Michael Albrecht MD. ENAMEL BUFFER: Quiana Wylie RN. ANESTHESIA: General. DESCRIPTION OF PROCEDURE: The patient was brought to the operating room and placed on the operative table in the supine position. Sequential compression devices were in place for DVT prophylaxis. She received an appropriate preoperative dose of Mefoxin. The patient underwent a general endotracheal anesthesia and the abdomen was then prepped and draped in a sterile fashion. Skin and subcutaneous tissue around the umbilicus was then infiltrated with 0.5% Marcaine. A transverse infraumbilical skin incision was then performed using #11 scalpel blade. Hemostasis obtained using electrocautery. Dissection was carried down through subcutaneous tissue and the fascia, which was then grasped between 2 Seth clamps and incised with curved Holden scissors. Peritoneum was entered and a pursestring suture of 0 Vicryl was then placed in the fascia. A 12-mm disposable Ludmila port was inserted through the opening held in place with the balloon port and the pursestring suture. Pneumoperitoneum was obtained to a level of 10-15 mmHg. Laparoscope was inserted through this port and exploration was performed, which revealed a somewhat dilated thickened gallbladder. There were adhesions over the dome of the liver and these were carefully dissected free using the hook electrocautery. Two lateral 5-mm Surgiport as well as an upper midline 11-mm Surgiport were all inserted under direct visualization after infiltration with 0.5% Marcaine. The gallbladder was then grasped and retracted superiorly and the cystic duct and artery were carefully dissected free. The cystic common bile duct junction was clearly identified. The cystic artery was also dissected free and clearly identified. The cystic duct was then triply clipped on the common bile duct side and doubly clipped on the gallbladder side [address] [address] OPERATIVE REPORT Name: OK WALTER Room #: 461-P [facility].#: [id number] Admission: 08/10/18 Attend Phys: Michael Albrecht MD Discharge: Date of : 34 Report #: [id number] and divided with the scissors. The artery was then doubly clipped on each side and also divided with the scissors. The gallbladder was then dissected free from the bed using the hook electrocautery. Prior to completing the dissection, the gallbladder was retracted superiorly and the bed inspected for hemostasis, which was obtained using electrocautery and found to be intact. Gallbladder was then transected and brought out through the upper midline port and sent as specimen to pathology. The port was then returned to the abdomen. The area was then copiously irrigated with warm saline solution, which was suctioned free and hemostasis was checked and found to be intact. Ports were then all removed under direct visualization, hemostasis intact at each port site. Pneumoperitoneum was released and periumbilical port was then also removed under direct visualization, hemostasis intact at that port site as well. The pneumoperitoneum was released and the periumbilical port was then also removed under direct visualization, hemostasis intact at that port site as well. The periumbilical fascia was then closed using the 0 Vicryl pursestring suture. The upper midline fascia was then closed using [id number] 0 Vicryl suture. Skin was then closed using interrupted vertical mattress 5-0 nylon sutures and the wound was dressed with Band-Aids. The patient was then awakened from the general endotracheal anesthesia, extubated and taken to recovery room in good condition. Estimated blood loss was approximately 5-10 mL and the patient tolerated procedure well. All sponge, lap and instrument counts correct x 2. <ELECTRONICALLY SIGNED> By: Michael Albrecht MD 08/10/18 1306 0957 1052 Michael Albrecht MD /nt
--- NOTE | ~2018-08-10 | PATH ---
[facility] [address] [place] [address] PATHOLOGY RPT PROCEDURE Name: OK WALTER Room #: 220-P [facility] IN M.R.#: [id number] Admission: 08/11/18 Date of : 34 Discharge: 08/12/18 Report #: [id number] Path Case #: [id number] [facility] Accession Number: [id number] . 01 Material submitted: . GALLBLADDER AND CONTENTS . 01 Clinician provided ICD-10: K80.20 . 01 Clinical history: . Not provided . 02 Diagnosis: Gallbladder, cholecystectomy: - Mild chronic cholecystitis. - Cholelithiasis. . (IUV:at;08/11/2018) QTA/08/11/2018 . 02 Electronically signed: . Seema Dallas MD, Pathologist NPI- [id number] . 01 Gross description: . Received in formalin "Ok Walter, gallbladder and contents" is a glistening, bourne, estevez, pink and intact gallbladder (7.5 x 2.4 x 2.4 cm and present. The lumen contains a 1.3 cm black calculus and 3 ml of tenacious green bile. The wall averages 0.3 cm thick. The mucosa is estevez and moderately velvety. Spiral Winder sections are submitted as A1. (SHERITA; 08/10/2018) /JBR . 02 Pathologist provided ICD-10: K80.10 . 02 CPT . 320424 Specimen Comment: A courtesy copy of this report has been sent to Specimen Comment: [phone]. Specimen Comment: Report sent to Specimen Comment: A duplicate report has been generated due to demographic updates. Performed at: [address] [place] [id number] [id number] [address] [place] [address] PATHOLOGY RPT PROCEDURE Name: OK WALTER Room #: 220-P DIS IN M.R.#: [id number] Admission: 08/11/18 Date of : 34 Discharge: 08/12/18 Report #: [id number] Path Case #: [id number] MD Colby Slade MD Phone: [phone] Performed at: [address] [id number] MD Seema Dallas MD Phone: [phone]
[~2018-08-10 05:30] MED LIST changes: +CALCIUM 600 +1 EAC2 PO; +KLOR-CON 1010 MEQ PO; +LASIX 20 MG TAB20 MG PO; +NORVASC2.5 MG PO; +SYNTHROID88 MCG PO; +TYLENOL EXTRA500 MG PO; +VITAMIN D32000 UNI1 PO
[2018-08-10 06:59] LABS: CALCIUM 10.2 mg/dL (8.5-10.1); CREATININE 1.2 mg/dL (0.6-1.0); POTASSIUM 3.6 mmol/L (3.5-5.1)
[2018-08-10] MEDS ORDERED: HYDROCODONE-AP1 EAC6 PO (10:02)
[2018-08-11 00:46] VITALS: BP 126/47
[2018-08-11 04:47] VITALS: BP 128/78
[2018-08-11 07:43] VITALS: BP 139/66
[2018-08-11 15:38] VITALS: BP 120/50
[2018-08-11 16:46] LABS: HEMATOCRIT 37.3 % (37.0-47.0); HEMOGLOBIN 12.6 gm/dL (12.0-15.0); MCH 29.8 pg (26.0-34.0); MCHC 33.8 g/dL (28.0-37.0); MCV 88.3 fL (80.0-100.0); RBC 4.23 mil/uL (4.20-5.00); RDW 15.5 % (10.5-14.5); WBC 8.5 thou/uL (4.0-11.0)
[2018-08-11 17:02] LABS: CALCIUM 8.2 mg/dL (8.5-10.1); CREATININE 1.2 mg/dL (0.6-1.0); POTASSIUM 4.5 mmol/L (3.5-5.1); TOTAL BILIRUBIN 0.9 mg/dL (<0.1-1.0); TOTAL PROTEIN 6.8 g/dL (6.4-8.2)
[2018-08-11 20:45] VITALS: BP 161/90
[2018-08-11 22:00] VITALS: BP 153/73
[2018-08-12 07:18] VITALS: BP 152/81
[2018-08-12 07:48] LABS: HEMATOCRIT 36.2 % (37.0-47.0); HEMOGLOBIN 12.3 gm/dL (12.0-15.0); MCH 30.1 pg (26.0-34.0); MCHC 34.1 g/dL (28.0-37.0); MCV 88.2 fL (80.0-100.0); RBC 4.11 mil/uL (4.20-5.00); RDW 15.4 % (10.5-14.5); WBC 7.3 thou/uL (4.0-11.0)
[2018-08-12 07:59] LABS: CALCIUM 8.2 mg/dL (8.5-10.1); CREATININE 0.9 mg/dL (0.6-1.0); POTASSIUM 4.1 mmol/L (3.5-5.1)
[2018-08-12 11:30] VITALS: BP 152/81
== END 2018-08-12 15:20 | disposition home or self-care (01) | DRG 418 ==
LOC: TBA 05:30 → OR 05:30 → 4W 12:50 → OR 13:13 → 4W 08-11 14:00 → SICU 08-11 14:00 → OR 08-11 14:00 → SICU 08-11 18:22
PROVIDERS: Surgery
PROC: 0FT44ZZ Resection of Gallbladder, Percutaneous Endoscopic Approach (ICD-10-PCS; principal; 2018-08-10)
DX: K80.60 Calculus of gallbladder and bile duct with cholecystitis, unspecified, without obstruction (principal); K56.7 Ileus, unspecified; R11.2 Nausea with vomiting, unspecified; M81.0 Age-related osteoporosis without current pathological fracture; I10 Essential (primary) hypertension; E89.0 Postprocedural hypothyroidism; Z85.3 Personal history of malignant neoplasm of breast; Z90.49 Acquired absence of other specified parts of digestive tract; Z90.11 Acquired absence of right breast and nipple; Z88.0 Allergy status to penicillin; Z79.899 Other long term (current) drug therapy; Z98.49 Cataract extraction status, unspecified eye
CPT/HCPCS: 10047; 15002; 50010; 50101; 50411; 50555; 50558; 51474; 51489; 52266; 53314; 56462; 56524; 56528; 62110; 62900; 65130; 70005

== ENCOUNTER → 2019-01-19 | Outpatient (CLI) | payer OTHER ==
[~2019-01-19] MED LIST changes: +HYDROCODONE-AP1 EAC6 PO
--- NOTE | 2019-01-19 15:10 | 2DMMODE ---
[facility] [place] [address] 2 D/M-MODE ECHOCARDIOGRAM Name: OK WALTER Steven Room #: REG [facility]#: [id number] ������������� Admission: 01/19/19 ������������� Attend Phys: Julio Tanner Discharge: ��� ������������� ��� Date of : 33 Date of Service: 01/19/19 1510 �� Report #: [id number] �������� ��������������������������������������������[id number] THIS REPORT FOR: //name// APPROVED REPORT Study performed: 01/19/2019 12:54:47 EXAM: Comprehensive 2D, Doppler, and color-flow Echocardiogram Patient Location: Out-Patient Status: routine BSA: 1.71 HR: 51 bpm BP: 125/70 mmHg Rhythm: Atrial Fibrillation Other Information Study Quality: Adequate Indications Atrial Fibrillation Dyspnea Hypertension/HDD 2D Dimensions RVDd: 33.50 mm IVSd: 9.34 (7-11mm) LVOT Diam: 20.66 (18-24mm) LVDd: 35.33 mm PWd: 9.39 (7-11mm) Ascending Ao: 29.17 (22-36mm) LVDs: 22.46 (25-40mm) Aortic Root: 30.40 mm IVC: 23.00 mm Volumes Left Atrial Volume (Systole) Single Plane 4CH: 14.80 mL Single Plane 2CH: 42.73 mL LA ESV Index: 18.04 mL/m2 Aortic Valve AoV Peak Veto.: 1.06 m/s AO Peak Gr.: 5.09 mmHg LVOT Max P.92 mmHg LVOT Max V: 0.85 m/s JESSICA Vmax: 2.70 cm2 Mitral Valve E/A Ratio: 3.6 [facility] [address] [place] [address] 2 D/M-MODE ECHOCARDIOGRAM Name: OK WALTER Room #: [facility]#: [id number] ������������� Admission: 01/19/19 ������������� Attend Phys: Julio Tanner Discharge: ��� ������������� ��� Date of : 34 Date of Service: 01/19/19 1510 �� Report #: [id number] �������� ��������������������������������������������[id number] MV Decel. Time: 209.34 ms MV E Max Veto.: 1.21 m/s MV A Veto.: 0.34 m/s MV PHT: 60.71 ms IVRT: 77.85 ms Pulmonary Valve PV Peak Veto.: 0.75 m/s PV Peak Gr.: 2.28 mmHg Tricuspid Valve TR Peak Veto.: 2.46 m/s RAP Estimate: 10.00 mmHg TR Peak Gr.: 24.26 mmHg PA Pressure: 34.00 mmHg Left Ventricle The left ventricle is normal size. There is normal left ventricular wall thickness. The left ventricular systolic function is normal. The left ventricular ejection fraction is within the normal range. LVEF is 55-60%. Right Ventricle The right ventricle is normal size. The right ventricular systolic function is normal. Atria The left atrium size is normal. Right atrium is mildly dilated. Aortic Valve The Aortic valve is sclerotic, trileaflet. No aortic regurgitation is present. There is no aortic valvular stenosis. Mitral Valve The mitral valve is normal in structure. Mild mitral regurgitation. No evidence of mitral valve stenosis. Tricuspid Valve The tricuspid valve is normal in structure. Mild tricuspid regurgitation. Estimated PAP of 34 mmHg. Pulmonic Valve Pulmonic valve is not well visualized. Mild pulmonic regurgitation. Great Vessels The aortic root is normal in size. Ascending aorta is not well [facility] [address] [place] [address] 2 D/M-MODE ECHOCARDIOGRAM Name: OK WALTER Room #: [facility]#: [id number] ������������� Admission: 01/19/19 ������������� Attend [facility]: [facility] Discharge: ��� ������������� ��� Date of : 34 Date of Service: 01/19/19 1510 �� Report #: [id number] �������� ��������������������������������������������[id number] visualized. IVC is dilated and collapses >50% with inspiration. Pericardium There is no pericardial effusion. <Conclusion> The left ventricle is normal size. There is normal left ventricular wall thickness. The left ventricular systolic function is normal. The right ventricle is normal size. The left atrium size is normal. The Aortic valve is sclerotic, trileaflet. Mild mitral regurgitation. Mild tricuspid regurgitation. Estimated PAP of 34 mmHg. ��������������������������������������������� <ELECTRONICALLY SIGNED> ���������������������������������������� By: Jimenez Mg MD ��������������������������������������������� 01/19/19 1510 09 09 Jimenez Mg MD /INF
== END ==
LOC: CV 12:34
DX: I08.1 Rheumatic disorders of both mitral and tricuspid valves (principal); I48.91 Unspecified atrial fibrillation; I10 Essential (primary) hypertension

== ENCOUNTER 2019-01-25 06:35 | Observation (INO) | payer OTHER ==
[2019-01-25] VITALS (8 sets, daily range): BP systolic 129–179; BP diastolic 52–80
[~2019-01-25] VITALS: Ht 175.3 cm; Wt 52.3 kg
[2019-01-25 07:13] LABS: BASOPHILS 1.2 % (0.0-2.0); EOSINOPHILS 2.7 % (0.0-3.0); HEMATOCRIT 38.4 % (37.0-47.0); HEMOGLOBIN 12.7 gm/dL (12.0-15.0); LYMPHOCYTES 23.9 % (24.0-44.0); MCH 29.5 pg (26.0-34.0); MCHC 33.2 g/dL (28.0-37.0); MONOCYTES 8.7 % (1.0-8.0); PLATELET COUNT 223 thou/uL (150-400); POLYS 63.5 % (36.0-66.0); RBC 4.32 mil/uL (4.20-5.00); RDW 15.1 % (10.5-14.5); WBC 6.4 thou/uL (4.0-11.0)
[2019-01-25 07:21] LABS: CALCIUM 9.1 mg/dL (8.5-10.1); CREATININE 0.9 mg/dL (0.6-1.0); POTASSIUM 3.4 mmol/L (3.5-5.1)
[2019-01-25 07:28] LABS: ALBUMIN 3.8 g/dL (3.4-5.0); TOTAL BILIRUBIN 0.8 mg/dL (<0.1-1.0); TOTAL PROTEIN 7.8 g/dL (6.4-8.2)
[2019-01-25 07:31] LABS: APTT 31.1 Seconds (24.5-32.8); PROTIME 10.4 Seconds (9.3-11.4)
[2019-01-25] MEDS ORDERED: BETIMOL5 ML OPHTHALMIC (07:45)
--- NOTE | 2019-01-25 19:36 | NUR ---
PATIENT USES CALL DELACRUZ APPROPRIATELY TO AVOID INJURY. ARRIVED TO FLOOR AT 1100 AM POST PACEMAKER PLACEMENT. INCISION CDI WITH SOME BRUISING, NO HEMATOMA. AFIB ON MONITOR, VPACED. NO C/O PAIN. IMMOBILIZER IN PLACE.
[2019-01-26 00:29] VITALS: BP 145/70
[2019-01-26 04:08] VITALS: BP 116/59
--- NOTE | 2019-01-26 05:31 | NUR ---
ASSUME CARE 1900. DENIES PAIN. TOLERATES ACTIVITY WELL. ON BEDREST POST PACEMAKER PLACEMENT. SITE CDI. LEFT ARM IMMOBILIZER. PT COMPLIES WITH POST OP PROTOCOL. ASSESSMETN CHARTED. ADEQUATE REST NOTED THROUGH THE NIGHT. PLAN IS A POSSIBLE DISCHARGE TODAY. WILL CONTINUE TO FOLLOW WITH POC
[2019-01-26 09:10] VITALS: BP 129/66
[2019-01-26 10:48] VITALS: BP 129/66
--- NOTE | 2019-01-27 13:11 | P ---
[facility] [place] [address] PROCEDURE REPORT Name: OK WALTER Room #: 211-P [facility] Horacio Cid#: [id number] Admission: 01/25/19 ������������������ Attend Phys: Julio Tanner MD Discharge: 01/26/19 ������������������ Date of : 34 Report #: [id number] THIS REPORT FOR: //name// CC: Yessi Tanner PROCEDURE: Pacemaker implantation. PREOPERATIVE DIAGNOSES: 1. Symptomatic bradycardia. 2. Atrial fibrillation. POSTOPERATIVE DIAGNOSES: 1. Symptomatic bradycardia. 2. Atrial fibrillation. HISTORY: The patient is an 83-year-old with history of atrial fibrillation with recent youth nutritional monitor showing that her average heart rates in the 60s. She is on no AV maycol blocking medications. She is here for pacemaker implantation for symptomatic bradycardia. Atrial lead was added as I have plans to cardiovert the patient in the future. ANESTHESIA: The patient underwent MAC anesthesia with no anesthesia related complications. DESCRIPTION OF PROCEDURE: The patient underwent informed consent. We discussed the details of the procedure including the risk, which include but not limited to bleeding, infection, vascular damage, cardiac perforation, pneumothorax. She understood these risks and was willing to proceed. The patient was brought to the EP laboratory in a fasting and sedated state and prepped and draped in a sterile fashion. She received IV vancomycin for antibiotic prophylaxis and underwent a venogram showing patency of the left axillary vein. Next, lidocaine was injected below the level of left clavicle. Incision was made and a pocket was created over the prepectoral fascia and access was obtained twice at left axillary vein using extrathoracic approach. Sheaths were positioned using the modified Seldinger technique. Next, under fluoroscopy, leads were positioned into the right ventricular mid septum and atrial lead was placed in the right atrial appendage. The leads were sutured to the prepectoral fascia and connected to the pacemaker. The pocket was irrigated with vancomycin. The pocket was closed in 2 layers using 2-0 for the deep layer, 3-0 for the mid layer and surgical glue was placed at the skin. The patient awoke neurologically and hemodynamically intact. No complications and no significant bleeding. The implanted pacemaker was a [employer], model #[id number], serial #[id number]. The atrial lead was a [employer] model #2088TC, serial [facility] [address] [place] [address] PROCEDURE REPORT Name: OK WALTER Room #: 211-P LIZETH Cid#: [id number] Admission: 01/25/19 ������������������ Attend Phys: Julio Tanner MD Discharge: 01/26/19 ������������������ Date of : 34 Report #: [id number] #[id number] with a P-wave of 1.4 millivolts, pacing impedance of 480 ohms. The RV lead was a [employer] model #2088, serial #[id number] with a R-wave of 3.2 millivolts, pacing impedance of 590 ohms and the pacing threshold 0.5 volts at 0.4 milliseconds. The device was programmed to VVIR 60-120 mode. CONCLUSIONS: 1. Successful dual-chamber pacemaker implantation. 2. Satisfactory atrial and ventricular lead characteristics. ��������������������������������������������� <ELECTRONICALLY SIGNED> ���������������������������������������� By: Julio Tanner MD ��������������������������������������������� 01/27/19 1311 0835 09 Julio Tanner MD /nt
--- NOTE | 2019-01-27 13:11 | D ---
[facility] [place] [address] DISCHARGE SUMMARY Name: OK WALTER Room #: 211-P [facility] Horacio Cid#: [id number] Admission: 01/25/19 ������������������ Attend Phys: Julio Tanner MD Discharge: 01/26/19 ������������������ Date of : 34 Report #: [id number] THIS REPORT FOR: //name// CC: Yessi Tanner DISCHARGE DIAGNOSES: 1. Symptomatic bradycardia. 2. Persistent atrial fibrillation. HISTORY: The patient is an 83-year-old with history of atrial fibrillation, recently wore bus monitor that shows that she is in AFib with average heart rate in the 50s-60s. She is here for pacemaker implantation for symptomatic bradycardia. She underwent successful device implant. There were no procedure-related complications. HOSPITAL COURSE: The patient was monitored overnight and did well. On day of discharge, she denied any chest pain, shortness of breath, fevers or chills. PHYSICAL EXAMINATION: HEART: Irregularly irregular with no murmurs, rubs, gallops. LUNGS: Clear to auscultation bilaterally. ABDOMEN: Soft, nontender. EXTREMITIES: No clubbing, cyanosis, edema and her incision was healing nicely with some mild bruising. As such, she was deemed stable for discharge home. She will continue on her same home medications at discharge. She will resume her Eliquis this evening. She will follow up in 7-10 days for a site check with my nurse practitioner and I will see her back in 3 months. ��������������������������������������������� <ELECTRONICALLY SIGNED> ���������������������������������������� By: Julio Tanner MD ��������������������������������������������� 01/27/19 1311 0829 0914 Julio Tanner MD /nt
== END 2019-01-26 15:30 | disposition home or self-care (01) ==
LOC: CATH 06:35 → 2N 10:42 → CATH 13:06 → ENTRNSPT 01-26 14:59 → EDTRNSPTSTS 01-26 15:00 → 2N 01-26 15:30
PROVIDERS: ADMIT Internal Medicine Cardiovascular Disease
DX: I49.5 Sick sinus syndrome (principal); R00.1 Bradycardia, unspecified; I48.1 Persistent atrial fibrillation
CPT/HCPCS: 62110; 62900; 70005

== ENCOUNTER 2019-02-11 13:23 | Inpatient (IN) | payer OTHER ==
[~2019-02-11] VITALS: Ht 175.3 cm; Wt 59.9 kg
[~2019-02-11 13:23] MED LIST changes: +BETIMOL5 ML OPHTHALMIC
[2019-02-11 13:30] VITALS: BP 145/62
[2019-02-11 13:41] LABS: ABSOLUTE NEUTROPHILS 7.5 thou/uL (1.4-8.2); BASOPHILS 0.2 % (0.0-2.0); EOSINOPHILS 5.4 % (0.0-3.0); HEMATOCRIT 39.4 % (37.0-47.0); HEMOGLOBIN 13.4 gm/dL (12.0-15.0); MCH 30.4 pg (26.0-34.0); MCV 89.3 fL (80.0-100.0); MONOCYTES 6.2 % (1.0-8.0); PLATELET COUNT 189 thou/uL (150-400); POLYS 81.2 % (36.0-66.0); RBC 4.41 mil/uL (4.20-5.00); RDW 15.8 % (10.5-14.5); WBC 9.3 thou/uL (4.0-11.0)
[2019-02-11] MEDS ORDERED: DORZOLAMIDE-TI1 EACH OPHTHALMIC (13:53)
[2019-02-11] MEDS ORDERED: PROLIA60 MG/1 ML SUBQ (13:54)
[2019-02-11 14:00] LABS: ANION GAP 10 mmol/L (7-16); BUN 21 mg/dL (7-18); CHLORIDE 102 mmol/L (98-107); CO2 24 mmol/L (21-32); GLUCOSE 135 mg/dL (74-106); POTASSIUM 4.2 mmol/L (3.5-5.1); SODIUM 136 mmol/L (136-145)
[2019-02-11 14:05] LABS: ALBUMIN 3.5 g/dL (3.4-5.0); LIPASE 72 U/L (73-393); SGOT 22 U/L (15-37); SGPT 17 U/L (30-65); TOTAL BILIRUBIN 1.3 mg/dL (<0.1-1.0); TOTAL PROTEIN 7.5 g/dL (6.4-8.2); TROPONIN-I <0.06 ng/mL (<0.06)
[2019-02-11 16:13] VITALS: BP 132/61
[2019-02-11 16:17] LABS: URINE BILIRUBIN NEGATIVE (Negative); URINE BLOOD 1+ (Negative); URINE CLARITY CLEAR; URINE COLOR YELLOW; URINE GLUCOSE-RANDOM* NEGATIVE (Negative); URINE KETONES 1+ (Negative); URINE LEUKOCYTES-REFLEX NEGATIVE (Negative); URINE NITRITE-REFLEX NEGATIVE (Negative); URINE PROTEIN (DIPSTICK) NEGATIVE (Negative); URINE SPECIFIC GRAVITY 1.025 (1.005-1.035); URINE UROBILINOGEN 0.2 E.U./dl (0.2-1.0)
[2019-02-11 16:25] LABS: BACTERIA-REFLEX 1-9 Few /HPF (None Seen); CASTS None Seen /LPF (None Seen); CRYSTALS None Seen /LPF (None Seen); SQUAMOUS 0-3 Few /LPF (0-3); URINE RBC 3-10 Few /HPF (0-2); URINE WBC-REFLEX 0-5 Rare /HPF (0-5)
[2019-02-11 17:17] VITALS: BP 114/48
[2019-02-11 17:25] VITALS: BP 121/63
--- NOTE | 2019-02-11 18:20 | NUR ---
pt received from er to room 355. pt ambulatory w/ a balanced, coordinated and steady gait. pt w/ fall risk band and yellow socks on. pt denies soa, on room air. iv access to lt ac recieving antibx w/ ns flush bag. limb alert to rt ue. pt states she will wear the scd's, placed on later before bed. noted internal pacemaker to lt chest. noted numerous bruises to chest. family friend at bs.
[2019-02-11 19:15] VITALS: BP 97/62
--- NOTE | 2019-02-12 03:41 | NUR ---
PATIENT ASSESSED AND IS ALERT X 4. SKIN WARM AND DRY. RESP EVEN AND UNLABORED. MIS SOA AT TIMES AND IS NOT NAUSEATED ANYMORE. NO EMESIS SINCE BEEN ON THE FLOOR. UPWITH STAND BY ASSIST X 1. LUNGS WHEEZY TO CTA NOW. THAKEN DIET WELL. HAD A PACEMAKER PLACED 2 WEEKS AGO. SOME BRUISING UNDER THE BREAST AND DOWN SIDE. NO SKIN ISSUES PACEMAKER HEALING NICELY. LEFT AC FLUSHESW ELL WITYH ANTIBIOTCS AND FLUIDS. ON ROOM AIR. VS STABLE NO PAIN STATED OR SOA. CONT PLAN OF CARE. NO TELE. REMAINS A FULL CODE.
[2019-02-12 04:03] VITALS: BP 113/55
[2019-02-12 04:47] LABS: HEMOGLOBIN 11.6 gm/dL (12.0-15.0); MCH 30.1 pg (26.0-34.0); MCHC 33.2 g/dL (28.0-37.0); MCV 90.6 fL (80.0-100.0); RBC 3.86 mil/uL (4.20-5.00); RDW 16.1 % (10.5-14.5); WBC 6.2 thou/uL (4.0-11.0)
[2019-02-12 05:00] LABS: CALCIUM 8.4 mg/dL (8.5-10.1); CREATININE 0.8 mg/dL (0.6-1.0); POTASSIUM 4.1 mmol/L (3.5-5.1)
[2019-02-12 07:52] VITALS: BP 136/76
--- NOTE | 2019-02-12 11:46 | EKG ---
[address] [employer] [place] [address] ELECTROCARDIOGRAM REPORT Name: OK WALTER Room #: 355-P ADM IN M.R.#: [id number] ������������������ Admission: 02/11/19 ������������������ Attend Phys: Hilario Mejias MD Discharge: ������������������ Date of : 34 Report #: [id number] ����������������������������������������������������������������� [id number] THIS REPORT FOR: //name// [facility] ED Test Date: 2019-02-11 Test Time: 13:37:39 Pat Name: OK WALTER Department: Room: [facility] Gender: F Broker: jr : 1935 Requested By: Roberta Daugherty Order Number: [id number] MD: Ari Constantino Measurements Intervals [place] Rate: 68 P: AK: QRS: -71 QRSD: 95 T: 97 QT: 409 QTc: 436 Interpretive Statements Atrial fibrillation Left anterior fascicular block Anteroseptal infarct, age indeterminate Compared to ECG 06/27/2018 11:29:57 No significant change was found Electronically Signed On 02-12-2019 11:46:47 CDT by Ari Constantino [email or web address] ��������������������������������������������� <ELECTRONICALLY SIGNED> ���������������������������������������� By: Ari Constantino MD, [facility] ��������������������������������������������� 02/12/19 1146 1337 133 Air Constantino MD, [facility] /EPI
[2019-02-12 16:29] VITALS: BP 144/76
[2019-02-12 19:36] VITALS: BP 118/59
[2019-02-13 03:36] VITALS: BP 157/74
--- NOTE | 2019-02-13 05:45 | NUR ---
ASSUMED CARE OF PT AT 1900. A&Ox4, COOPERATIVE. VS STABLE. C/O NAUSEA 2Xs AND HAD 30mL EMESIS AT START OF SHIFT, ZOFRAN GIVEN W/ PARTIAL RELIEF. MEDS GIVEN ORDERED. BECAME VERY ANXIOUS AROUND 2330, NOT ABLE TO SLEEP, RR 26, MOANING EACH EXPIRATION. VS CHECKED, STABLE, AFEBRILE. BREATHING TX AND SLEEP MED GIVEN. LITTLE PROGRESS TOWARDS POC GOALS. WILL CONINUE TO PROVIDE CARE AND MONITOR.
[2019-02-13 07:54] VITALS: BP 118/59
--- NOTE | 2019-02-13 08:49 | EKG ---
[address] [address] ELECTROCARDIOGRAM REPORT Name: OK WALTER Room #: 355- ADM IN M.R.#: [id number] ������������������ Admission: 02/11/19 ������������������ Attend Phys: Hilario Mejias MD Discharge: ������������������ Date of : 34 Report #: [id number] ����������������������������������������������������������������� [id number] THIS REPORT FOR: //name// [facility] Test Date: 2019-02-13 Test Time: 07:58:14 Pat Name: OK WALTER Department: Room: 355 Gender: F Bellstand Attendant: EUNICE : 1935 Requested By: Ari Constantino Order Number: [id number] MD: Ari Constantino Measurements Intervals [place] Rate: 76 P: [place]: QRS: -69 QRSD: 84 T: 90 QT: 395 QTc: 445 Interpretive Statements Atrial fibrillation Left anterior fascicular block Anteroseptal infarct, age indeterminate Compared to ECG 02/11/2019 13:37:39 No significant changes Electronically Signed On 02-13-2019 8:49:12 CDT by Ari Constantino [email or web address] ��������������������������������������������� <ELECTRONICALLY SIGNED> ���������������������������������������� By: Ari Constantino MD, [facility] ��������������������������������������������� 02/13/19 0849 0758 0758 Ari Constantino MD, [facility] /EPI
--- NOTE | 2019-02-13 11:56 | 2DMMODE ---
[address] [address] 2 D/M-MODE ECHOCARDIOGRAM Name: OK WALTER Room #: 355-P ADM IN M.R.#: [id number] ������������� Admission: 02/11/19 ������������� Attend Phys: Hilario Mejias MD Discharge: ��� ������������� ��� Date of : 33 Date of Service: 02/13/19 1156 �� Report #: [id number] �������� ��������������������������������������������[id number] THIS REPORT FOR: //name// APPROVED REPORT Study performed: 02/13/2019 11:14:21 EXAM: Limited 2D Echocardiogram Patient Location: Bedside Room #: [facility] Status: routine BSA: 1.73 HR: 83 bpm BP: 118/59 mmHg Rhythm: Pacemaker Other Information Study Quality: Fair/no patient cooperation Technically limited study due to limited window availability/heavy breathing, lung artifact.. Indications Rule out pericardial effusion status post pacemaker 01/25/19. LV function. Left Ventricle The left ventricle is normal size. Left ventricular systolic function is normal. LVEF is 60%. Right Ventricle The right ventricle is normal size. The right ventricular systolic function is normal. Atria Pacemaker lead is present in the right atrium. Aortic Valve The aortic valve is normal in structure. Mitral Valve The mitral valve is normal in structure. Great Vessels IVC is dilated and collapses >50% with inspiration. [facility] [address] [place] [address] 2 D/M-MODE ECHOCARDIOGRAM Name: OK WALTER Room #: 355-P [facility] IN ..#: [id number] ������������� Admission: 02/11/19 ������������� Attend Phys: Hilario Mejias MD Discharge: ��� ������������� ��� Date of : 33 Date of Service: 02/13/19 1156 �� Report #: [id number] �������� ��������������������������������������������[id number] Pericardium There is no pericardial effusion. <Conclusion> Abbreviated/limited study Left ventricular systolic function is normal. LVEF is 60%. There is no pericardial effusion. ��������������������������������������������� <ELECTRONICALLY SIGNED> ���������������������������������������� By: Ari Constantino MD, FACC ��������������������������������������������� 02/13/19 1156 1156 55 Ari Constantino MD, FACC /INF
--- NOTE | 2019-02-13 14:00 | NUR ---
ASSESSMENT: CM REVIEWED CHART AND MET WITH PATIENT AT THE BEDSIDE. PT WAS ADMITTED WITH URI. PT REPORTS SHE LIVES AT HOME ALONE IN A HOUSE. PT REPORTS ONE STEP TO ENTER THE HOME AND REPORTS HER BEDROOM IS ON THE MAIN LEVEL. PT REPORTS HAVING ABOUT 14 STEPS WITH HANDRAILS TO HER BASEMENT WHERE THE LAUNDRY IS. PT REPORTS SHE NORMALLY AMBULATES INDEPENDENTLY BUT DOES HAVE A CANE AND WALKER AT HOME. PT REPORTS HAVING A GRAB BAR AND SHOWER CHAIR AND STATES SHE IS NORMALLY INDEPENDENT WITH ADLS. PT REPORTS SHE HAD HH YEARS AGO BUT UNSURE THE AGENCY. PT STATES SHE HAS NOT BEEN TO A SNF. CM DISCUSSED ROLE. PT/OT EVALS PENDING. PT STATING SINCE SHE LIVES ALONE MAY BENEFIT FROM SNF AND WANTED REFERRALS SENT TO [facility]. CM NOTIFIED AUTOMATION ENGINEER TO SEND REFERRALS. CM WILL CONTINUE TO FOLLOW. CM SPOKE WITH PATIENTS SON TO UPDATE.
--- NOTE | 2019-02-13 15:25 | NUR ---
dp sent 2 referrals for patient, who may possible need SNF and possibly dc tomorrow. Referrals sent to [facility] and [facility], both places were notified.
[2019-02-13 16:19] VITALS: BP 131/74
--- NOTE | 2019-02-13 18:11 | NUR ---
ASSUMED PATIENT CARE AT 0700, A/O X4. LABORED BERATHING WHEN AWAKE. ANXIOUS. GENERLAZER WEAKNESS. LOW TEMP. SLOWLY TOWARDS POC GOALS.
[2019-02-13 19:07] VITALS: BP 124/56
[2019-02-14 04:09] VITALS: BP 135/60
--- NOTE | 2019-02-14 04:39 | NUR ---
Patient increased from 1L NC to 2LNC during an episode of SOB and wheezing while laying in bed. O2 Sats were checked at this time and were 97%. RT notified to give patient a PRN albuterol treatment. Since the treatment, the patient has been resting comfortably with no SOB episodes or wheezing. Patient progressing toward plan of care goal. Patient taken to bathroom once this shift via this RN and use of a gait belt. The patient was weak, a little shakey, and unsteady at times on her feet. The patient didn't require much assistance and used the bathroom independently. The patient has ran a low grade fever this shift with temperature checks of 99.5 F and 99.6 F but otherwise good vitals. The patient has had a nonproductive cough and runny nose.
[2019-02-14 05:54] LABS: HEMOGLOBIN 11.6 gm/dL (12.0-15.0); RBC 3.89 mil/uL (4.20-5.00); WBC 7.3 thou/uL (4.0-11.0)
[2019-02-14 05:56] LABS: HEMATOCRIT 34.4 % (37.0-47.0); MCH 29.8 pg (26.0-34.0); MCHC 33.7 g/dL (28.0-37.0); MCV 88.6 fL (80.0-100.0); RDW 15.9 % (10.5-14.5)
[2019-02-14 06:13] LABS: CALCIUM 7.7 mg/dL (8.5-10.1); CREATININE 0.9 mg/dL (0.6-1.0); POTASSIUM 3.9 mmol/L (3.5-5.1)
[2019-02-14 07:50] VITALS: BP 108/59
[2019-02-14 08:00] VITALS: BP 108/59
--- NOTE | 2019-02-14 09:48 | NUR ---
ON-GOING ASSESSMENT: CM REVIEWED CHART AND MET WITH PATIENT AT THE BEDSIDE. CM DISCUSSED PATIENT COULD LIKELY GO HOME WITH HH OR GO TO SNF. CM HEARD BACK FROM [facility] WHO BOTH STATE THEY CAN ACCEPT HER AT DISCHARGE. LIASON FROM [place] IS COMING TO SEE PATIENT THIS AM. PT STATES AFTER THIS SHE WILL LIKELY MAKE A DECISION. CM WILL FOLLOW UP. CM SPOKE WITH PATIENTS DAUGHTER IN [employer] TO UPDATE.
[2019-02-14] MEDS ORDERED: TAMIFLU30 MG PO (11:49)
== END 2019-02-14 16:11 | DRG 391 ==
LOC: ER 13:23 → 3W 17:08 → EROBS 17:08 → 3W 17:21
PROVIDERS: Nurse Practitioner Family; ADMIT Hospitalist
DX: K52.9 Noninfective gastroenteritis and colitis, unspecified (principal); E43 Unspecified severe protein-calorie malnutrition; J06.9 Acute upper respiratory infection, unspecified; J11.1 Influenza due to unidentified influenza virus with other respiratory manifestations; M81.0 Age-related osteoporosis without current pathological fracture; H40.9 Unspecified glaucoma; I50.9 Heart failure, unspecified; E03.9 Hypothyroidism, unspecified; J40 Bronchitis, not specified as acute or chronic; I11.0 Hypertensive heart disease with heart failure; I49.5 Sick sinus syndrome; M19.90 Unspecified osteoarthritis, unspecified site; I48.2 Chronic atrial fibrillation; Z60.2 Problems related to living alone; M62.84 Sarcopenia; Z98.42 Cataract extraction status, left eye; Z98.41 Cataract extraction status, right eye; Z85.3 Personal history of malignant neoplasm of breast; Z88.0 Allergy status to penicillin; Z79.01 Long term (current) use of anticoagulants; Z79.899 Other long term (current) drug therapy; Z90.49 Acquired absence of other specified parts of digestive tract; Z95.0 Presence of cardiac pacemaker
CPT/HCPCS: 10879

== ENCOUNTER 2019-03-02 17:01 | Emergency (ER) | payer OTHER ==
[~2019-03-02] VITALS: Ht 175.3 cm; Wt 53.5 kg
[~2019-03-02 17:01] MED LIST changes: +DORZOLAMIDE-TI1 EACH OPHTHALMIC; +PROLIA60 MG/1 ML SUBQ; +TAMIFLU30 MG PO
[2019-03-02 19:17] LABS: ABSOLUTE NEUTROPHILS 3.6 thou/uL (1.4-8.2); BASOPHILS 1.1 % (0.0-2.0); EOSINOPHILS 4.4 % (0.0-3.0); HEMATOCRIT 36.4 % (37.0-47.0); HEMOGLOBIN 12.2 gm/dL (12.0-15.0); LYMPHOCYTES 31.2 % (24.0-44.0); MCH 29.4 pg (26.0-34.0); MCHC 33.4 g/dL (28.0-37.0); PLATELET COUNT 326 thou/uL (150-400); POLYS 53.3 % (36.0-66.0); RBC 4.13 mil/uL (4.20-5.00); RDW 15.8 % (10.5-14.5); WBC 6.8 thou/uL (4.0-11.0)
[2019-03-02 19:25] LABS: ANION GAP 8 mmol/L (7-16); BUN 18 mg/dL (7-18); CALCIUM 11.2 mg/dL (8.5-10.1); CHLORIDE 94 mmol/L (98-107); CO2 32 mmol/L (21-32); CREATININE 1.3 mg/dL (0.6-1.0); GLUCOSE 104 mg/dL (74-106); POTASSIUM 4.1 mmol/L (3.5-5.1); SODIUM 134 mmol/L (136-145)
[2019-03-02 19:28] LABS: APTT 30.4 Seconds (24.5-32.8); PROTIME 10.6 Seconds (9.3-11.4)
[2019-03-02 19:35] LABS: ALBUMIN 3.4 g/dL (3.4-5.0); MAGNESIUM 1.9 mg/dL (1.8-2.4); SGOT 15 U/L (15-37); SGPT 18 U/L (30-65); TOTAL BILIRUBIN 0.5 mg/dL (<0.1-1.0); TOTAL PROTEIN 7.8 g/dL (6.4-8.2); TROPONIN-I <0.06 ng/mL (<0.06)
[2019-03-02] MEDS ORDERED: TESSALON PERLE100 MG PO (19:49)
[2019-03-02] MEDS ORDERED: CEFDINIR300 MG PO (19:49)
[2019-03-02] MEDS ORDERED: PREDNISONE 20 M20 MG PO (20:03)
[2019-03-02 20:33] VITALS: BP 130/59
--- NOTE | 2019-03-03 08:25 | EKG ---
[address] [address] ELECTROCARDIOGRAM REPORT Name: KO WALTER Room #: [facility]#: [id number] ������������������ Admission: 03/02/19 ������������������ Attend Phys: Discharge: 03/02/19 ������������������ Date of : 33 Report #: [id number] ����������������������������������������������������������������� [id number] THIS REPORT FOR: //name// [facility] ED Test Date: 2019-03-02 Test Time: 19:22:44 Pat Name: OK WALTER Department: Room: Gender: F Customer Acquisition Manager: : [id number] Requested By: Ion Guevara Order Number: [id number] MD: Julio Tanner Measurements Intervals [place] Rate: 66 P: MI: QRS: -53 QRSD: 105 T: 82 QT: 436 QTc: 457 Interpretive Statements Atrial fibrillation Inferior infarct, old Anteroseptal infarct, age indeterminate Compared to ECG 02/13/2019 07:58:14 Left anterior fascicular block no longer present Myocardial infarct finding still present Electronically Signed On 03-03-2019 8:25:04 CDT by Julio Tanner [email or web address] ��������������������������������������������� <ELECTRONICALLY SIGNED> ���������������������������������������� By: Julio Tanner MD ��������������������������������������������� 03/03/1925 21 21 Julio Tanner MD /EPI
== END 2019-03-02 20:33 | disposition home or self-care (01) ==
LOC: ER 17:01
PROVIDERS: Emergency Medicine
DX: J20.9 Acute bronchitis, unspecified (principal); J44.0 Chronic obstructive pulmonary disease with (acute) lower respiratory infection; I13.0 Hypertensive heart and chronic kidney disease with heart failure and stage 1 through stage 4 chronic kidney disease, or unspecified chronic kidney disease; N18.9 Chronic kidney disease, unspecified; I50.9 Heart failure, unspecified; M81.0 Age-related osteoporosis without current pathological fracture; I48.91 Unspecified atrial fibrillation; E03.9 Hypothyroidism, unspecified; Z85.3 Personal history of malignant neoplasm of breast; Z79.899 Other long term (current) drug therapy; Z88.0 Allergy status to penicillin

== ENCOUNTER 2019-03-08 21:08 | Emergency (ER) | payer OTHER ==
[~2019-03-08] VITALS: Ht 175.3 cm; Wt 56.2 kg
[~2019-03-08 21:08] MED LIST changes: +CEFDINIR300 MG PO; +PREDNISONE 20 M20 MG PO; +TESSALON PERLE100 MG PO
[2019-03-08] MEDS ORDERED: NYSTATIN100000 UNI SW&SWALLOW (22:36)
[2019-03-08 23:00] VITALS: BP 150/70
== END 2019-03-08 23:00 | disposition home or self-care (01) ==
LOC: ER 21:08
DX: B37.0 Candidal stomatitis (principal); M81.0 Age-related osteoporosis without current pathological fracture; I48.91 Unspecified atrial fibrillation; E03.9 Hypothyroidism, unspecified; I11.0 Hypertensive heart disease with heart failure; I50.9 Heart failure, unspecified; Z86.2 Personal history of diseases of the blood and blood-forming organs and certain disorders involving the immune mechanism; Z85.3 Personal history of malignant neoplasm of breast; Z90.11 Acquired absence of right breast and nipple; Z88.0 Allergy status to penicillin; Z90.89 Acquired absence of other organs; Z90.49 Acquired absence of other specified parts of digestive tract

== ENCOUNTER → 2019-08-08 | Outpatient (CLI) | payer OTHER ==
[~2019-08-08] MED LIST changes: +NYSTATIN100000 UNI SW&SWALLOW
== END ==
LOC: RAD 08:58
DX: Z12.31 Encounter for screening mammogram for malignant neoplasm of breast (principal)

== ENCOUNTER → 2019-08-31 | Outpatient (CLI) | payer OTHER | LOC: RAD 11:54 | DX: R06.02 Shortness of breath (principal); R06.00 Dyspnea, unspecified; Z88.0 Allergy status to penicillin ==

== ENCOUNTER → 2019-09-20 | Outpatient (CLI) | payer OTHER | LOC: CAT 08:40 | DX: I70.0 Atherosclerosis of aorta (principal); M95.4 Acquired deformity of chest and rib; J98.4 Other disorders of lung; M25.78 Osteophyte, vertebrae; Z90.49 Acquired absence of other specified parts of digestive tract ==

== ENCOUNTER → 2020-01-18 | Outpatient (CLI) | payer OTHER | LOC: SJCVCIMAG 09:12 | DX: Z45.018 Encounter for adjustment and management of other part of cardiac pacemaker (principal); I45.4 Nonspecific intraventricular block; I27.20 Pulmonary hypertension, unspecified; R94.31 Abnormal electrocardiogram [ECG] [EKG]; I35.8 Other nonrheumatic aortic valve disorders; I34.0 Nonrheumatic mitral (valve) insufficiency; I48.21 Permanent atrial fibrillation; I44.2 Atrioventricular block, complete; I10 Essential (primary) hypertension; Z79.899 Other long term (current) drug therapy ==

== ENCOUNTER → 2020-02-21 | Outpatient (CLI) | payer OTHER | LOC: SJCVC 14:24 | DX: R94.31 Abnormal electrocardiogram [ECG] [EKG] (principal); I21.09 ST elevation (STEMI) myocardial infarction involving other coronary artery of anterior wall; I48.21 Permanent atrial fibrillation; I10 Essential (primary) hypertension ==

== ENCOUNTER → 2020-04-23 | Outpatient (CLI) | payer OTHER | LOC: SJCVC 14:25 | PROVIDERS: ATTEND Internal Medicine Cardiovascular Disease | DX: R94.31 Abnormal electrocardiogram [ECG] [EKG] (principal); I44.7 Left bundle-branch block, unspecified; R00.1 Bradycardia, unspecified; I48.21 Permanent atrial fibrillation; R06.00 Dyspnea, unspecified; Z95.0 Presence of cardiac pacemaker ==

== ENCOUNTER → 2021-01-22 | Outpatient (CLI) | payer OTHER | LOC: SJCVC 12:55 | PROVIDERS: ATTEND Internal Medicine Cardiovascular Disease | DX: R94.31 Abnormal electrocardiogram [ECG] [EKG] (principal); I44.7 Left bundle-branch block, unspecified; I44.0 Atrioventricular block, first degree; I49.49 Other premature depolarization; I48.21 Permanent atrial fibrillation; I73.9 Peripheral vascular disease, unspecified; I11.0 Hypertensive heart disease with heart failure; I50.9 Heart failure, unspecified; E03.9 Hypothyroidism, unspecified; Z95.0 Presence of cardiac pacemaker; Z90.49 Acquired absence of other specified parts of digestive tract; Z98.890 Other specified postprocedural states; Z88.0 Allergy status to penicillin; Z79.899 Other long term (current) drug therapy; Z82.49 Family history of ischemic heart disease and other diseases of the circulatory system ==

== ENCOUNTER → 2021-01-24 | Outpatient (CLI) | payer OTHER | LOC: SJCVCIMAG 09:20 | PROVIDERS: ATTEND Internal Medicine Cardiovascular Disease | DX: I73.9 Peripheral vascular disease, unspecified (principal); M79.661 Pain in right lower leg; M79.662 Pain in left lower leg ==

== ENCOUNTER → 2021-01-28 | Outpatient (CLI) | payer OTHER | LOC: BC 09:47 | PROVIDERS: ATTEND Internal Medicine | DX: Z12.31 Encounter for screening mammogram for malignant neoplasm of breast (principal) ==